=== PATIENT | female | born 1960 | race Caucasian/White ===

== ENCOUNTER 2021-11-12 15:01 | Inpatient (IN) ==
[2021-11-12] MEDS ORDERED: SODIUM CHLORIDE 0.9% 1,000 ML IV STA (15:35)
[2021-11-12 16:10] LABS: Basophils # 0.1 10*3/uL (0.0-0.2); Basophils % 0.5 % (0.0-0.8); Eosinophils # 0.1 10*3/uL (0.0-0.87); Eosinophils % 0.9 % (0.00-10.9); Hematocrit 37.4 VOL% (35.7-47.0); Hemoglobin 11.7 GM/DL (12.0-16.0); Immature Granulocytes % 0.8 %; Immature Granulocytes Absolute 0.11 #; Lymphocytes # 1.7 10*3/uL (1.4-4.0); Lymphocytes % 11.8 % (21.3-54.2); Mean Corpuscular HGB Conc 31.3 GM/DL (32-36); Mean Corpuscular Volume 86.6 FL (87-102); Mean Platelet Volume 9.9 FL (9.6-12.0); Monocytes % 4.9 % (1.7-12.7); Neutrophils % 81.1 % (38.7-73.9); Platelet Count 287 T/CUMM (130-400); Red Blood Count 4.32 MC/CUMM (3.8-5.5); Red Cell Distribution Width 18.6 % (9.3-17.3); White Blood Count 14.1 T/CUMM (4-12)
[2021-11-12 16:25] LABS: Alanine Aminotransferase 12 U/L (13-56); Albumin 2.2 G/DL (3.4-5.0); Alkaline Phosphatase 159 U/L (45-117); Aspartate Amino Transferase 16 U/L (0-37); Bilirubin,Total < 0.39 MG/DL (0.20-1.00); Blood Urea Nitrogen 14 MG/DL (7-18); Calcium 8.5 MG/DL (8.5-10.1); Carbon Dioxide 25 MMOL/L (21-32); Estimated Glom Filtration Rate 117 ML/MIN; Glucose 308 MG/DL (74-106); Osmolality,Calculated 289.5 MOS/KG (273-304); Potassium 4.4 MMOL/L (3.5-5.1); Sodium 139 MMOL/L (136-145); Total Protein 6.9 G/DL (6.4-8.2)
[2021-11-12] MEDS ORDERED: hydrALAZINE 20 MG/1 ML VIAL IV PRN (17:05)
[2021-11-12] MEDS ORDERED: DEXTROSE 10% 25 GM/250 ML BAG IV PRN (17:05)
[2021-11-12] MEDS ORDERED: ONDANSETRON 4 MG/2 ML VIAL IV PRN (17:05)
[2021-11-12] MEDS ORDERED: GLUCAGON 1 MG VIAL IM PRN (17:05)
[2021-11-12] MEDS ORDERED: VANCOMYCIN INJ 1,000 MG in SODIUM CHLORIDE 0.9% 250 ML IV SCH (17:30)
[2021-11-12 17:52] LABS: Bacteria,Urine Moderate /HPF (Few); Bilirubin,Urine Negative (Negative); Blood, Urine Negative (Negative); Glucose,Urine (UA) >=500 mg/dL (Negative); Ketones,Urine 5 mg/dL (Negative); Mucus,Urine Occasional /LPF (Occasional); Nitrite,Urine Positive (Negative); Protein,Urine 30 MG/DL; RBC,Urine 4 /HPF (0-4); Squamous Epithelial Cell,Urine Occasional /HPF (0-10); Urine Appearance Slightly Hazy (Clear); Urine Color Yellow (Yellow); Urine Specific Gravity 1.032 (1.001-1.035); Urine Urobilinogen < 2.0 EU/DL (<2.0)
[2021-11-12] MEDS: MORPHINE 2 MG/1 ML SYRINGE IV PRN (19:54)
[2021-11-12] MEDS: VANCOMYCIN INJ 1,750 MG in SODIUM CHLORIDE 0.9% 500 ML IV SCH (22:00)
[2021-11-12] MEDS: INSULIN REGULAR 100 UNIT/ML SUBCUT SCH (22:14)
[2021-11-13] MEDS: MORPHINE 2 MG/1 ML SYRINGE IV PRN ×2 (00:23→04:54)
[2021-11-13 05:41] LABS: Basophils # 0.1 10*3/uL (0.0-0.2); Basophils % 0.4 % (0.0-0.8); Eosinophils # 0.2 10*3/uL (0.0-0.87); Eosinophils % 1.3 % (0.00-10.9); Hematocrit 33.6 VOL% (35.7-47.0); Hemoglobin 10.5 GM/DL (12.0-16.0); Immature Granulocytes % 0.7 %; Immature Granulocytes Absolute 0.11 #; Lymphocytes # 2.3 10*3/uL (1.4-4.0); Lymphocytes % 15.1 % (21.3-54.2); Mean Corpuscular HGB Conc 31.3 GM/DL (32-36); Mean Corpuscular Volume 88.2 FL (87-102); Mean Platelet Volume 10.3 FL (9.6-12.0); Monocytes % 6.3 % (1.7-12.7); Neutrophils % 76.2 % (38.7-73.9); Platelet Count 268 T/CUMM (130-400); Red Blood Count 3.81 MC/CUMM (3.8-5.5); Red Cell Distribution Width 18.6 % (9.3-17.3)
[2021-11-13] MEDS ORDERED: ceFAZolin 2,000 MG/50 ML DUPLEX IV ONE (06:00)
[2021-11-13 06:09] LABS: Alanine Aminotransferase < 6 U/L (13-56); Albumin 2.3 G/DL (3.4-5.0); Alkaline Phosphatase 153 U/L (45-117); Aspartate Amino Transferase 8 U/L (0-37); Blood Urea Nitrogen 15 MG/DL (7-18); Calcium 8.9 MG/DL (8.5-10.1); Carbon Dioxide 23 MMOL/L (21-32); Estimated Glom Filtration Rate 123 ML/MIN; Glucose 307 MG/DL (74-106); HDL Cholesterol 36 MG/DL (40-60); Osmolality,Calculated 280.2 MOS/KG (273-304); Potassium 4.5 MMOL/L (3.5-5.1); Risk Ratio 3.36; Sodium 134 MMOL/L (136-145); Total Protein 6.6 G/DL (6.4-8.2); Triglycerides 180 MG/DL (2-150)
[2021-11-13] MEDS: INSULIN REGULAR 100 UNIT/ML SUBCUT SCH ×5 (08:46→22:21)
[2021-11-13] MEDS ORDERED: propofoL 200 MG/20 ML VIAL IV ONE (09:09)
[2021-11-13] MEDS ORDERED: SEVOFLURANE 1 UNIT/15 MINUTE INH ONE ×5 (09:09→10:21)
[2021-11-13] MEDS ORDERED: LIDOCAINE 2% 5 ML VIAL ONE (09:09)
[2021-11-13] MEDS ORDERED: fentaNYL 100 MCG/2 ML VIAL ONE (09:10)
[2021-11-13] MEDS ORDERED: MIDAZOLAM 2 MG/2 ML VIAL ONE (09:10)
[2021-11-13] MEDS ORDERED: ACETAMINOPHEN INJ 1,000 MG/100 ML VIAL IV ONE (10:12)
[2021-11-13] MEDS ORDERED: KETOROLAC 30 MG/1 ML VIAL ONE (10:36)
[2021-11-13] MEDS ORDERED: ONDANSETRON 4 MG/2 ML VIAL ONE (10:36)
[2021-11-13] MEDS ORDERED: MAGNESIUM HYDROXIDE SUSP 30 ML UDCUP PO PRN (11:12)
[2021-11-13] MEDS ORDERED: LIDOCAINE 1% 5 ML VIAL ONE (11:19)
[2021-11-13] MEDS ORDERED: BUPIVACAINE MPF 0.25% 30 ML VIAL ONE ×2 (11:19→11:28)
[2021-11-13] MEDS ORDERED: ONDANSETRON 4 MG/2 ML VIAL IV PRN (11:40)
[2021-11-13] MEDS: HYDROmorphone 2 MG/1 ML VIAL IV PRN ×4 (11:42→12:19)
[2021-11-13] MEDS ORDERED: MAGNESIUM SULF RIDER 2 GM/50 ML PREMIX IV ONE (12:00)
[2021-11-13] MEDS: VANCOMYCIN INJ 1,750 MG in SODIUM CHLORIDE 0.9% 500 ML IV SCH ×2 (14:22→21:03)
[2021-11-13] MEDS: diphenhydrAMINE CAP 25 MG CAPSULE PO PRN (14:32)
[2021-11-13] MEDS: ACETAMINOPHEN 325 MG TABLET PO PRN (18:17)
[2021-11-13] MEDS: DOCUSATE SODIUM 100 MG CAPSULE PO SCH (21:03)
[2021-11-13] MEDS: LACTATED RINGERS 1,000 ML IV SCH (22:22)
[2021-11-14] MEDS: FONDAPARINUX 2.5 MG/0.5 ML SYRINGE SUBCUT SCH (05:19)
[2021-11-14 05:29] LABS: Basophils # 0.1 10*3/uL (0.0-0.2); Basophils % 0.5 % (0.0-0.8); Eosinophils # 0.4 10*3/uL (0.0-0.87); Eosinophils % 3.1 % (0.00-10.9); Hematocrit 30.1 VOL% (35.7-47.0); Hemoglobin 9.3 GM/DL (12.0-16.0); Immature Granulocytes Absolute 0.12 #; Mean Corpuscular HGB Conc 30.9 GM/DL (32-36); Mean Corpuscular Volume 88.3 FL (87-102); Monocytes % 6.1 % (1.7-12.7); Neutrophils % 63.3 % (38.7-73.9); Platelet Count 248 T/CUMM (130-400); Red Blood Count 3.41 MC/CUMM (3.8-5.5); Red Cell Distribution Width 18.6 % (9.3-17.3); White Blood Count 11.5 T/CUMM (4-12)
[2021-11-14 05:53] LABS: Albumin 1.9 G/DL (3.4-5.0); Bilirubin,Total 0.7 MG/DL (0.20-1.00); Calcium 8.1 MG/DL (8.5-10.1); Osmolality,Calculated 283.5 MOS/KG (273-304); Total Protein 5.9 G/DL (6.4-8.2)
[2021-11-14] MEDS: LACTATED RINGERS 1,000 ML IV SCH ×2 (07:41→07:42)
[2021-11-14] MEDS: PANTOPRAZOLE 40 MG TABLET PO SCH (08:53)
[2021-11-14] MEDS: VANCOMYCIN INJ 1,750 MG in SODIUM CHLORIDE 0.9% 500 ML IV SCH ×2 (08:53→21:24)
[2021-11-14] MEDS: DOCUSATE SODIUM 100 MG CAPSULE PO SCH ×2 (08:53→21:23)
[2021-11-14] MEDS: INSULIN REGULAR 100 UNIT/ML SUBCUT SCH ×4 (09:17→21:23)
[2021-11-14] MEDS: MORPHINE 2 MG/1 ML SYRINGE IV PRN (09:20)
[2021-11-14] MEDS ORDERED: TUBERCULIN SKIN TEST 0.1 ML SYRINGE INTRADERM ONE (09:30)
[2021-11-14] MEDS: SODIUM HYPOCHLORITE 0.25% IRRIG 473 ML BOTTLE TOP SCH (10:43)
[2021-11-14] MEDS: diphenhydrAMINE CAP 25 MG CAPSULE PO PRN ×3 (11:23→23:33)
[2021-11-14] MEDS: POLYETHYLENE GLYCOL POWDER 17 GM PACK PO SCH (13:11)
[2021-11-14] MEDS: BISACODYL 5 MG TABLET PO SCH (13:11)
[2021-11-15] MEDS: SODIUM CHLORIDE 0.9% 1,000 ML IV SCH ×2 (05:05→14:27)
[2021-11-15] MEDS: FONDAPARINUX 2.5 MG/0.5 ML SYRINGE SUBCUT SCH (05:30)
[2021-11-15] MEDS: diphenhydrAMINE CAP 25 MG CAPSULE PO PRN ×2 (05:40→21:01)
[2021-11-15 05:55] LABS: Basophils # 0.1 10*3/uL (0.0-0.2); Basophils % 0.9 % (0.0-0.8); Eosinophils # 0.5 10*3/uL (0.0-0.87); Eosinophils % 4.3 % (0.00-10.9); Hematocrit 32.7 VOL% (35.7-47.0); Hemoglobin 9.8 GM/DL (12.0-16.0); Immature Granulocytes % 1.9 %; Immature Granulocytes Absolute 0.22 #; Lymphocytes # 1.9 10*3/uL (1.4-4.0); Lymphocytes % 16.1 % (21.3-54.2); Mean Corpuscular Volume 89.1 FL (87-102); Mean Platelet Volume 9.9 FL (9.6-12.0); Monocytes % 6.9 % (1.7-12.7); Neutrophils % 69.9 % (38.7-73.9); Platelet Count 300 T/CUMM (130-400); Red Blood Count 3.67 MC/CUMM (3.8-5.5); White Blood Count 11.7 T/CUMM (4-12)
[2021-11-15 06:11] LABS: Albumin 2.1 G/DL (3.4-5.0); Bilirubin,Total 0.5 MG/DL (0.20-1.00); Calcium 8.2 MG/DL (8.5-10.1); Osmolality,Calculated 282.7 MOS/KG (273-304); Potassium 4.3 MMOL/L (3.5-5.1); Total Protein 6.4 G/DL (6.4-8.2)
[2021-11-15] MEDS: INSULIN REGULAR 100 UNIT/ML SUBCUT SCH ×4 (09:04→21:03)
[2021-11-15] MEDS: PANTOPRAZOLE 40 MG TABLET PO SCH (09:04)
[2021-11-15] MEDS: SODIUM HYPOCHLORITE 0.25% IRRIG 473 ML BOTTLE TOP SCH (09:05)
[2021-11-15] MEDS: INSULIN GLARGINE 100 UNIT/ML SUBCUT SCH ×2 (09:05→11:08)
[2021-11-15] MEDS: POLYETHYLENE GLYCOL POWDER 17 GM PACK PO SCH (09:06)
[2021-11-15] MEDS: BISACODYL 5 MG TABLET PO SCH (09:06)
[2021-11-15] MEDS: DOCUSATE SODIUM 100 MG CAPSULE PO SCH ×2 (09:06→21:01)
[2021-11-15] MEDS: hydrOXYzine HCL 10 MG TABLET PO PRN ×2 (09:18→15:01)
[2021-11-15] MEDS: MEROPENEM 500 MG in SODIUM CHLORIDE 0.9% 100 ML IV SCH ×2 (14:04→20:59)
[2021-11-15] MEDS: VANCOMYCIN INJ 1,750 MG in SODIUM CHLORIDE 0.9% 500 ML IV SCH (15:00)
[2021-11-16] MEDS: MEROPENEM 500 MG in SODIUM CHLORIDE 0.9% 100 ML IV SCH ×5 (01:08→21:00)
[2021-11-16] MEDS: diphenhydrAMINE CAP 25 MG CAPSULE PO PRN ×2 (06:15→21:00)
[2021-11-16] MEDS: FONDAPARINUX 2.5 MG/0.5 ML SYRINGE SUBCUT SCH (06:15)
[2021-11-16 07:22] LABS: Basophils # 0.1 10*3/uL (0.0-0.2); Basophils % 0.9 % (0.0-0.8); Eosinophils # 0.6 10*3/uL (0.0-0.87); Eosinophils % 4.9 % (0.00-10.9); Hematocrit 33.8 VOL% (35.7-47.0); Hemoglobin 9.9 GM/DL (12.0-16.0); Immature Granulocytes % 1.8 %; Lymphocytes # 2.1 10*3/uL (1.4-4.0); Lymphocytes % 18.5 % (21.3-54.2); Mean Corpuscular HGB Conc 29.3 GM/DL (32-36); Mean Corpuscular Volume 92.3 FL (87-102); Mean Platelet Volume 9.4 FL (9.6-12.0); Monocytes % 6.7 % (1.7-12.7); Neutrophils % 67.2 % (38.7-73.9); Platelet Count 312 T/CUMM (130-400); Red Blood Count 3.66 MC/CUMM (3.8-5.5); Red Cell Distribution Width 18.3 % (9.3-17.3); White Blood Count 11.1 T/CUMM (4-12)
[2021-11-16 07:30] LABS: Calcium 8.4 MG/DL (8.5-10.1); Osmolality,Calculated 282.8 MOS/KG (273-304); Potassium 4.2 MMOL/L (3.5-5.1); Total Protein 6.3 G/DL (6.4-8.2)
[2021-11-16] MEDS: DOCUSATE SODIUM 100 MG CAPSULE PO SCH ×2 (09:42→21:00)
[2021-11-16] MEDS: PANTOPRAZOLE 40 MG TABLET PO SCH (09:42)
[2021-11-16] MEDS: INSULIN GLARGINE 100 UNIT/ML SUBCUT SCH (09:42)
[2021-11-16] MEDS: INSULIN REGULAR 100 UNIT/ML SUBCUT SCH ×4 (09:42→21:01)
[2021-11-16] MEDS: POLYETHYLENE GLYCOL POWDER 17 GM PACK PO SCH (09:53)
[2021-11-16] MEDS: BISACODYL 5 MG TABLET PO SCH (09:53)
[2021-11-16] MEDS: VANCOMYCIN INJ 1,750 MG in SODIUM CHLORIDE 0.9% 500 ML IV SCH (09:54)
[2021-11-16 10:07] LABS: Anisocytosis 1+; Platelet Estimate Normal
[2021-11-16] MEDS ORDERED: INSULIN GLARGINE 100 UNIT/ML SUBCUT ONE (10:32)
[2021-11-16] MEDS: SULFAMETHOX/TRIMETHOPRIM 800-160 MG TABLET PO SCH ×2 (12:20→21:00)
[2021-11-16] MEDS: FLUCONAZOLE 150 MG TABLET PO SCH (12:20)
[2021-11-16] MEDS: SODIUM HYPOCHLORITE 0.25% IRRIG 473 ML BOTTLE TOP SCH (15:45)
[2021-11-17] MEDS: MEROPENEM 500 MG in SODIUM CHLORIDE 0.9% 100 ML IV SCH ×4 (03:39→21:39)
[2021-11-17] MEDS: diphenhydrAMINE CAP 25 MG CAPSULE PO PRN ×3 (05:00→21:38)
[2021-11-17] MEDS: FONDAPARINUX 2.5 MG/0.5 ML SYRINGE SUBCUT SCH (05:00)
[2021-11-17 06:46] LABS: Basophils # 0.1 10*3/uL (0.0-0.2); Basophils % 0.6 % (0.0-0.8); Eosinophils # 0.5 10*3/uL (0.0-0.87); Eosinophils % 4.7 % (0.00-10.9); Hematocrit 30.3 VOL% (35.7-47.0); Hemoglobin 9.2 GM/DL (12.0-16.0); Lymphocytes # 2.6 10*3/uL (1.4-4.0); Mean Corpuscular HGB Conc 30.4 GM/DL (32-36); Mean Corpuscular Volume 88.3 FL (87-102); Mean Platelet Volume 9.9 FL (9.6-12.0); Monocytes % 5.8 % (1.7-12.7); Neutrophils % 60.9 % (38.7-73.9); Platelet Count 350 T/CUMM (130-400); Red Blood Count 3.43 MC/CUMM (3.8-5.5); Red Cell Distribution Width 18.5 % (9.3-17.3); White Blood Count 9.9 T/CUMM (4-12)
[2021-11-17 07:09] LABS: Albumin 1.9 G/DL (3.4-5.0); Bilirubin,Total 0.4 MG/DL (0.20-1.00); Calcium 8.7 MG/DL (8.5-10.1); Potassium 3.9 MMOL/L (3.5-5.1); Total Protein 6.2 G/DL (6.4-8.2)
[2021-11-17] MEDS: PANTOPRAZOLE 40 MG TABLET PO SCH (08:36)
[2021-11-17] MEDS: BISACODYL 5 MG TABLET PO SCH (08:36)
[2021-11-17] MEDS: INSULIN REGULAR 100 UNIT/ML SUBCUT SCH ×4 (08:37→21:38)
[2021-11-17] MEDS: SULFAMETHOX/TRIMETHOPRIM 800-160 MG TABLET PO SCH ×2 (08:37→21:38)
[2021-11-17] MEDS: DOCUSATE SODIUM 100 MG CAPSULE PO SCH ×2 (08:37→21:38)
[2021-11-17] MEDS: INSULIN GLARGINE 100 UNIT/ML SUBCUT SCH (08:38)
[2021-11-17] MEDS: POLYETHYLENE GLYCOL POWDER 17 GM PACK PO SCH ×2 (08:57→21:39)
[2021-11-17] MEDS ORDERED: traMADol 50 MG TABLET PO PRN (13:01)
[2021-11-17] MEDS: CHOLECALCIFEROL 1,000 UNIT TABLET PO SCH (14:37)
[2021-11-17] MEDS: SODIUM HYPOCHLORITE 0.25% IRRIG 473 ML BOTTLE TOP SCH (16:22)
[2021-11-17] MEDS: NYSTATIN POWDER 15 GM BOTTLE TOP SCH ×2 (17:00→21:39)
[2021-11-17] MEDS: MORPHINE 2 MG/1 ML SYRINGE IV PRN (21:40)
[2021-11-18] MEDS: MEROPENEM 500 MG in SODIUM CHLORIDE 0.9% 100 ML IV SCH ×4 (02:08→21:21)
[2021-11-18] MEDS: FONDAPARINUX 2.5 MG/0.5 ML SYRINGE SUBCUT SCH (06:27)
[2021-11-18] MEDS ORDERED: oxyCODONE/ACETAMINOPHEN 5-325 MG TABLET PO PRN (06:55)
[2021-11-18] MEDS: LINACLOTIDE 145 MCG CAPSULE PO SCH (07:55)
[2021-11-18] MEDS: INSULIN REGULAR 100 UNIT/ML SUBCUT SCH ×4 (08:30→21:22)
[2021-11-18] MEDS: INSULIN GLARGINE 100 UNIT/ML SUBCUT SCH (08:30)
[2021-11-18] MEDS: POLYETHYLENE GLYCOL POWDER 17 GM PACK PO SCH ×2 (08:30→22:40)
[2021-11-18] MEDS: BISACODYL 5 MG TABLET PO SCH (08:31)
[2021-11-18] MEDS: PANTOPRAZOLE 40 MG TABLET PO SCH (08:31)
[2021-11-18] MEDS: DOCUSATE SODIUM 100 MG CAPSULE PO SCH ×2 (08:31→21:22)
[2021-11-18] MEDS: SULFAMETHOX/TRIMETHOPRIM 800-160 MG TABLET PO SCH ×2 (08:31→21:22)
[2021-11-18] MEDS: NYSTATIN POWDER 15 GM BOTTLE TOP SCH ×3 (09:15→21:04)
[2021-11-18] MEDS: SODIUM HYPOCHLORITE 0.25% IRRIG 473 ML BOTTLE TOP SCH (09:28)
[2021-11-18] MEDS: MULTIVITAMIN (BEROCCA) TABLET PO SCH (09:29)
[2021-11-18] MEDS: CHOLECALCIFEROL 1,000 UNIT TABLET PO SCH (09:29)
[2021-11-18] MEDS ORDERED: ERGOCALCIFEROL 50,000 UNIT CAPSULE PO ONE (10:30)
[2021-11-18] MEDS ORDERED: ALVIMOPAN 12 MG CAPSULE PO SCH (13:30)
[2021-11-18] MEDS ORDERED: BISACODYL 10 MG SUPP RECTAL ONE (13:45)
[2021-11-18] MEDS: oxyCODONE/ACETAMINOPHEN 5-325 MG TABLET PO PRN ×2 (13:58→23:04)
[2021-11-18] MEDS ORDERED: LACTULOSE 20 GM/30 ML UDCUP PO SCH (14:00)
[2021-11-18] MEDS ORDERED: LUBIPROSTONE 24 MCG CAPSULE PO SCH (14:00)
[2021-11-18] MEDS: diphenhydrAMINE CAP 25 MG CAPSULE PO PRN (21:22)
[2021-11-19] MEDS: MEROPENEM 500 MG in SODIUM CHLORIDE 0.9% 100 ML IV SCH ×4 (02:31→21:47)
[2021-11-19 06:13] LABS: Calcium 8.8 MG/DL (8.5-10.1); Osmolality,Calculated 271.4 MOS/KG (273-304); Potassium 4.2 MMOL/L (3.5-5.1)
[2021-11-19] MEDS: FONDAPARINUX 2.5 MG/0.5 ML SYRINGE SUBCUT SCH (06:37)
[2021-11-19 07:04] LABS: Basophils # 0.1 10*3/uL (0.0-0.2); Basophils % 0.7 % (0.0-0.8); Eosinophils # 0.5 10*3/uL (0.0-0.87); Eosinophils % 5.5 % (0.00-10.9); Hemoglobin 10.3 GM/DL (12.0-16.0); Immature Granulocytes Absolute 0.17 #; Lymphocytes # 2.3 10*3/uL (1.4-4.0); Lymphocytes % 26.7 % (21.3-54.2); Mean Corpuscular HGB Conc 31.2 GM/DL (32-36); Mean Corpuscular Volume 87.3 FL (87-102); Mean Platelet Volume 9.2 FL (9.6-12.0); Monocytes % 6.5 % (1.7-12.7); Neutrophils % 58.6 % (38.7-73.9); Platelet Count 394 T/CUMM (130-400); Red Blood Count 3.78 MC/CUMM (3.8-5.5); Red Cell Distribution Width 18.9 % (9.3-17.3); White Blood Count 8.5 T/CUMM (4-12)
[2021-11-19] MEDS: INSULIN REGULAR 100 UNIT/ML SUBCUT SCH ×4 (09:12→21:59)
[2021-11-19] MEDS: INSULIN GLARGINE 100 UNIT/ML SUBCUT SCH (09:12)
[2021-11-19] MEDS: MULTIVITAMIN (BEROCCA) TABLET PO SCH (09:13)
[2021-11-19] MEDS: LINACLOTIDE 145 MCG CAPSULE PO SCH (09:13)
[2021-11-19] MEDS: diphenhydrAMINE CAP 25 MG CAPSULE PO PRN ×2 (09:13→19:36)
[2021-11-19] MEDS: PANTOPRAZOLE 40 MG TABLET PO SCH (09:13)
[2021-11-19] MEDS: SULFAMETHOX/TRIMETHOPRIM 800-160 MG TABLET PO SCH ×2 (09:13→21:46)
[2021-11-19] MEDS: POLYETHYLENE GLYCOL POWDER 17 GM PACK PO SCH ×2 (09:13→22:00)
[2021-11-19] MEDS: DOCUSATE SODIUM 100 MG CAPSULE PO SCH ×2 (09:14→21:46)
[2021-11-19] MEDS: oxyCODONE/ACETAMINOPHEN 5-325 MG TABLET PO PRN ×3 (09:14→21:46)
[2021-11-19] MEDS: SODIUM HYPOCHLORITE 0.25% IRRIG 473 ML BOTTLE TOP SCH (09:15)
[2021-11-19] MEDS: NYSTATIN POWDER 15 GM BOTTLE TOP SCH ×3 (09:15→21:59)
[2021-11-19] MEDS: CHOLECALCIFEROL 1,000 UNIT TABLET PO SCH (11:37)
[2021-11-19] MEDS: FLUCONAZOLE 150 MG TABLET PO SCH (11:39)
[2021-11-20] MEDS: diphenhydrAMINE CAP 25 MG CAPSULE PO PRN ×4 (02:13→21:12)
[2021-11-20] MEDS: MEROPENEM 500 MG in SODIUM CHLORIDE 0.9% 100 ML IV SCH ×4 (02:15→21:11)
[2021-11-20] MEDS: FONDAPARINUX 2.5 MG/0.5 ML SYRINGE SUBCUT SCH (06:22)
[2021-11-20 06:33] LABS: Basophils # 0.1 10*3/uL (0.0-0.2); Basophils % 0.8 % (0.0-0.8); Eosinophils # 0.4 10*3/uL (0.0-0.87); Eosinophils % 4.2 % (0.00-10.9); Hemoglobin 10.3 GM/DL (12.0-16.0); Immature Granulocytes Absolute 0.19 #; Lymphocytes # 2.5 10*3/uL (1.4-4.0); Lymphocytes % 26.8 % (21.3-54.2); Mean Corpuscular HGB Conc 30.3 GM/DL (32-36); Mean Corpuscular Volume 88.1 FL (87-102); Mean Platelet Volume 9.4 FL (9.6-12.0); Neutrophils % 60.2 % (38.7-73.9); Platelet Count 466 T/CUMM (130-400); Red Blood Count 3.86 MC/CUMM (3.8-5.5); White Blood Count 9.5 T/CUMM (4-12)
[2021-11-20 07:15] LABS: Calcium 8.6 MG/DL (8.5-10.1); Osmolality,Calculated 285.7 MOS/KG (273-304); Potassium 4.2 MMOL/L (3.5-5.1)
[2021-11-20] MEDS: MULTIVITAMIN (BEROCCA) TABLET PO SCH (09:48)
[2021-11-20] MEDS: SULFAMETHOX/TRIMETHOPRIM 800-160 MG TABLET PO SCH ×2 (09:49→21:12)
[2021-11-20] MEDS: INSULIN GLARGINE 100 UNIT/ML SUBCUT SCH (09:49)
[2021-11-20] MEDS: PANTOPRAZOLE 40 MG TABLET PO SCH (09:49)
[2021-11-20] MEDS: INSULIN REGULAR 100 UNIT/ML SUBCUT SCH ×4 (09:49→21:10)
[2021-11-20] MEDS: CHOLECALCIFEROL 1,000 UNIT TABLET PO SCH (09:49)
[2021-11-20] MEDS: oxyCODONE/ACETAMINOPHEN 5-325 MG TABLET PO PRN ×2 (09:50→16:10)
[2021-11-20] MEDS: SODIUM HYPOCHLORITE 0.25% IRRIG 473 ML BOTTLE TOP SCH (09:52)
[2021-11-20] MEDS: NYSTATIN POWDER 15 GM BOTTLE TOP SCH (09:52)
[2021-11-20] MEDS: LINACLOTIDE 145 MCG CAPSULE PO SCH (11:10)
[2021-11-20] MEDS: POLYETHYLENE GLYCOL POWDER 17 GM PACK PO SCH ×2 (11:10→21:12)
[2021-11-20] MEDS: DOCUSATE SODIUM 100 MG CAPSULE PO SCH ×2 (11:10→21:12)
[2021-11-20] MEDS: metFORMIN 500 MG TABLET PO SCH (16:09)
[2021-11-20] MEDS: CLOTRIMAZOLE 1% CREAM 15 GM TUBE TOP SCH ×2 (17:35→21:12)
[2021-11-21] MEDS: oxyCODONE/ACETAMINOPHEN 5-325 MG TABLET PO PRN ×3 (02:27→18:25)
[2021-11-21] MEDS: MEROPENEM 500 MG in SODIUM CHLORIDE 0.9% 100 ML IV SCH ×2 (02:28→08:51)
[2021-11-21 05:50] LABS: Basophils # 0.1 10*3/uL (0.0-0.2); Basophils % 0.6 % (0.0-0.8); Eosinophils # 0.5 10*3/uL (0.0-0.87); Eosinophils % 5.1 % (0.00-10.9); Hemoglobin 10.4 GM/DL (12.0-16.0); Immature Granulocytes % 2.6 %; Immature Granulocytes Absolute 0.26 #; Lymphocytes % 30.2 % (21.3-54.2); Mean Corpuscular HGB Conc 31.5 GM/DL (32-36); Mean Corpuscular Volume 88.7 FL (87-102); Mean Platelet Volume 9.5 FL (9.6-12.0); Monocytes % 6.1 % (1.7-12.7); Neutrophils % 55.4 % (38.7-73.9); Platelet Count 503 T/CUMM (130-400); Red Blood Count 3.72 MC/CUMM (3.8-5.5); Red Cell Distribution Width 19.2 % (9.3-17.3)
[2021-11-21 05:53] LABS: Calcium 8.8 MG/DL (8.5-10.1); Osmolality,Calculated 282.7 MOS/KG (273-304)
[2021-11-21] MEDS: FONDAPARINUX 2.5 MG/0.5 ML SYRINGE SUBCUT SCH (05:53)
[2021-11-21] MEDS: CHOLECALCIFEROL 5,000 UNIT TABLET PO SCH (08:50)
[2021-11-21] MEDS: SULFAMETHOX/TRIMETHOPRIM 800-160 MG TABLET PO SCH ×2 (08:50→21:55)
[2021-11-21] MEDS: metFORMIN 500 MG TABLET PO SCH ×2 (08:51→17:29)
[2021-11-21] MEDS: PANTOPRAZOLE 40 MG TABLET PO SCH (08:51)
[2021-11-21] MEDS: DOCUSATE SODIUM 100 MG CAPSULE PO SCH ×2 (08:51→21:56)
[2021-11-21] MEDS: DAPAGLIFLOZIN 10 MG TABLET PO SCH (08:51)
[2021-11-21] MEDS: MULTIVITAMIN (BEROCCA) TABLET PO SCH (08:51)
[2021-11-21] MEDS: FLUCONAZOLE 100 MG TABLET PO SCH (08:51)
[2021-11-21] MEDS: POLYETHYLENE GLYCOL POWDER 17 GM PACK PO SCH ×3 (08:54→21:56)
[2021-11-21] MEDS ORDERED: INSULIN GLARGINE 100 UNIT/ML SUBCUT SCH (09:00)
[2021-11-21] MEDS: INSULIN REGULAR 100 UNIT/ML SUBCUT SCH ×4 (09:01→21:55)
[2021-11-21] MEDS: diphenhydrAMINE CAP 25 MG CAPSULE PO PRN ×2 (09:01→18:25)
[2021-11-21] MEDS: LINACLOTIDE 145 MCG CAPSULE PO SCH (09:01)
[2021-11-21] MEDS: CLOTRIMAZOLE 1% CREAM 15 GM TUBE TOP SCH ×2 (09:02→21:56)
[2021-11-21] MEDS: SODIUM HYPOCHLORITE 0.25% IRRIG 473 ML BOTTLE TOP SCH (09:02)
[2021-11-21] MEDS: ACETAMINOPHEN 325 MG TABLET PO PRN (21:55)
[2021-11-22 04:09] LABS: Basophils # 0.1 10*3/uL (0.0-0.2); Basophils % 0.8 % (0.0-0.8); Eosinophils # 0.4 10*3/uL (0.0-0.87); Eosinophils % 4.6 % (0.00-10.9); Hematocrit 33.4 VOL% (35.7-47.0); Hemoglobin 10.4 GM/DL (12.0-16.0); Immature Granulocytes % 1.8 %; Immature Granulocytes Absolute 0.15 #; Lymphocytes # 3.2 10*3/uL (1.4-4.0); Lymphocytes % 37.8 % (21.3-54.2); Mean Corpuscular HGB Conc 31.1 GM/DL (32-36); Mean Corpuscular Volume 88.1 FL (87-102); Mean Platelet Volume 9.1 FL (9.6-12.0); Monocytes % 7.1 % (1.7-12.7); Neutrophils % 47.9 % (38.7-73.9); Platelet Count 506 T/CUMM (130-400); Red Blood Count 3.79 MC/CUMM (3.8-5.5); Red Cell Distribution Width 19.1 % (9.3-17.3); White Blood Count 8.5 T/CUMM (4-12)
[2021-11-22 04:27] LABS: Calcium 9.1 MG/DL (8.5-10.1); Osmolality,Calculated 278.8 MOS/KG (273-304); Potassium 3.9 MMOL/L (3.5-5.1)
[2021-11-22 05:06] LABS: Ferritin 55.9 ng/mL (8-252)
[2021-11-22] MEDS: FONDAPARINUX 2.5 MG/0.5 ML SYRINGE SUBCUT SCH (05:25)
[2021-11-22] MEDS: diphenhydrAMINE CAP 25 MG CAPSULE PO PRN ×3 (05:25→22:12)
[2021-11-22] MEDS: oxyCODONE/ACETAMINOPHEN 5-325 MG TABLET PO PRN ×4 (05:26→22:12)
[2021-11-22] MEDS: INSULIN REGULAR 100 UNIT/ML SUBCUT SCH ×4 (09:00→21:50)
[2021-11-22] MEDS: SODIUM HYPOCHLORITE 0.25% IRRIG 473 ML BOTTLE TOP SCH (09:00)
[2021-11-22] MEDS: DOCUSATE SODIUM 100 MG CAPSULE PO SCH ×2 (09:00→21:50)
[2021-11-22] MEDS: INSULIN GLARGINE 100 UNIT/ML SUBCUT SCH ×2 (09:00→09:39)
[2021-11-22] MEDS: CLOTRIMAZOLE 1% CREAM 15 GM TUBE TOP SCH ×2 (09:00→21:50)
[2021-11-22] MEDS: DAPAGLIFLOZIN 10 MG TABLET PO SCH (09:00)
[2021-11-22] MEDS: FLUCONAZOLE 100 MG TABLET PO SCH (09:37)
[2021-11-22] MEDS: CHOLECALCIFEROL 5,000 UNIT TABLET PO SCH (09:37)
[2021-11-22] MEDS: metFORMIN 500 MG TABLET PO SCH ×2 (09:37→17:25)
[2021-11-22] MEDS: PANTOPRAZOLE 40 MG TABLET PO SCH (09:37)
[2021-11-22] MEDS: SULFAMETHOX/TRIMETHOPRIM 800-160 MG TABLET PO SCH ×2 (09:37→21:50)
[2021-11-22] MEDS: LINACLOTIDE 145 MCG CAPSULE PO SCH (09:38)
[2021-11-22] MEDS: MULTIVITAMIN (BEROCCA) TABLET PO SCH (09:38)
[2021-11-22] MEDS: POLYETHYLENE GLYCOL POWDER 17 GM PACK PO SCH ×3 (11:45→21:50)
[2021-11-23] MEDS: FONDAPARINUX 2.5 MG/0.5 ML SYRINGE SUBCUT SCH (05:31)
[2021-11-23 05:38] LABS: Basophils # 0.1 10*3/uL (0.0-0.2); Basophils % 0.8 % (0.0-0.8); Eosinophils # 0.4 10*3/uL (0.0-0.87); Eosinophils % 4.2 % (0.00-10.9); Hematocrit 36.7 VOL% (35.7-47.0); Hemoglobin 10.9 GM/DL (12.0-16.0); Immature Granulocytes % 1.2 %; Immature Granulocytes Absolute 0.11 #; Lymphocytes % 32.7 % (21.3-54.2); Mean Corpuscular HGB Conc 29.7 GM/DL (32-36); Mean Corpuscular Volume 88.9 FL (87-102); Mean Platelet Volume 9.1 FL (9.6-12.0); Monocytes % 6.5 % (1.7-12.7); Neutrophils % 54.6 % (38.7-73.9); Platelet Count 560 T/CUMM (130-400); Red Blood Count 4.13 MC/CUMM (3.8-5.5); Red Cell Distribution Width 18.6 % (9.3-17.3); White Blood Count 9.2 T/CUMM (4-12)
[2021-11-23 06:05] LABS: Calcium 8.9 MG/DL (8.5-10.1); Osmolality,Calculated 278.1 MOS/KG (273-304); Potassium 4.3 MMOL/L (3.5-5.1)
[2021-11-23 06:06] LABS: Ferritin 58.7 ng/mL (8-252)
[2021-11-23] MEDS: LINACLOTIDE 145 MCG CAPSULE PO SCH (08:00)
[2021-11-23] MEDS: INSULIN GLARGINE 100 UNIT/ML SUBCUT SCH (08:40)
[2021-11-23] MEDS: INSULIN REGULAR 100 UNIT/ML SUBCUT SCH ×4 (08:40→20:36)
[2021-11-23] MEDS: MULTIVITAMIN (BEROCCA) TABLET PO SCH (08:41)
[2021-11-23] MEDS: DAPAGLIFLOZIN 10 MG TABLET PO SCH (08:41)
[2021-11-23] MEDS: DOCUSATE SODIUM 100 MG CAPSULE PO SCH ×2 (08:41→21:23)
[2021-11-23] MEDS: CHOLECALCIFEROL 5,000 UNIT TABLET PO SCH (08:41)
[2021-11-23] MEDS: sitaGLIPtin 100 MG TABLET PO SCH (08:41)
[2021-11-23] MEDS: metFORMIN 500 MG TABLET PO SCH ×2 (08:42→17:00)
[2021-11-23] MEDS: PANTOPRAZOLE 40 MG TABLET PO SCH (08:42)
[2021-11-23] MEDS: SULFAMETHOX/TRIMETHOPRIM 800-160 MG TABLET PO SCH ×2 (08:42→21:23)
[2021-11-23] MEDS: FLUCONAZOLE 100 MG TABLET PO SCH (08:42)
[2021-11-23] MEDS: SODIUM HYPOCHLORITE 0.25% IRRIG 473 ML BOTTLE TOP SCH (08:44)
[2021-11-23] MEDS: CLOTRIMAZOLE 1% CREAM 15 GM TUBE TOP SCH ×2 (08:48→21:24)
[2021-11-23] MEDS: POLYETHYLENE GLYCOL POWDER 17 GM PACK PO SCH ×3 (08:49→21:24)
[2021-11-23] MEDS: oxyCODONE/ACETAMINOPHEN 5-325 MG TABLET PO PRN ×2 (12:29→21:24)
[2021-11-23] MEDS: diphenhydrAMINE CAP 25 MG CAPSULE PO PRN ×2 (12:29→21:23)
[2021-11-24] MEDS: oxyCODONE/ACETAMINOPHEN 5-325 MG TABLET PO PRN ×2 (04:14→11:46)
[2021-11-24] MEDS: diphenhydrAMINE CAP 25 MG CAPSULE PO PRN ×2 (04:14→11:46)
[2021-11-24] MEDS: FONDAPARINUX 2.5 MG/0.5 ML SYRINGE SUBCUT SCH (05:39)
[2021-11-24 06:16] LABS: Calcium 9.5 MG/DL (8.5-10.1); Potassium 4.1 MMOL/L (3.5-5.1)
[2021-11-24 06:22] LABS: Ferritin 57.5 ng/mL (8-252)
[2021-11-24] MEDS: metFORMIN 500 MG TABLET PO SCH (08:10)
[2021-11-24] MEDS: CHOLECALCIFEROL 5,000 UNIT TABLET PO SCH (08:10)
[2021-11-24] MEDS: INSULIN REGULAR 100 UNIT/ML SUBCUT SCH ×3 (08:10→16:32)
[2021-11-24] MEDS: MULTIVITAMIN (BEROCCA) TABLET PO SCH (08:11)
[2021-11-24] MEDS: LINACLOTIDE 145 MCG CAPSULE PO SCH (08:11)
[2021-11-24] MEDS: POLYETHYLENE GLYCOL POWDER 17 GM PACK PO SCH ×3 (08:11→15:29)
[2021-11-24] MEDS: PANTOPRAZOLE 40 MG TABLET PO SCH (08:11)
[2021-11-24] MEDS: DAPAGLIFLOZIN 10 MG TABLET PO SCH (08:11)
[2021-11-24] MEDS: FLUCONAZOLE 100 MG TABLET PO SCH (08:11)
[2021-11-24] MEDS: DOCUSATE SODIUM 100 MG CAPSULE PO SCH (08:11)
[2021-11-24] MEDS: CLOTRIMAZOLE 1% CREAM 15 GM TUBE TOP SCH (08:23)
[2021-11-24] MEDS: sitaGLIPtin 100 MG TABLET PO SCH (08:23)
[2021-11-24] MEDS: SODIUM HYPOCHLORITE 0.25% IRRIG 473 ML BOTTLE TOP SCH (08:24)
[2021-11-24] MEDS ORDERED: INSULIN GLARGINE 100 UNIT/ML SUBCUT SCH (09:00)
[2021-11-24 09:40] LABS: Basophils # 0.1 # (0.0-0.1); Basophils % 0.5 % (0.2-1.0); Eosinophils # 0.4 # (0.0-0.70); Eosinophils % 3.7 % (0.0-10.0); Hematocrit 36.2 VOL% (37.0-47.0); Hemoglobin 11.5 GM/DL (12.0-16.0); Lymphocytes # 2.6 # (1.3-2.9); Lymphocytes % 27.4 % (20.5-45.5); Mean Corpuscular HGB Conc 31.8 GM/DL (32-36); Mean Corpuscular Volume 87.9 FL (81-99); Mean Platelet Volume 9.2 FL (7.4-10.4); Monocytes % 6.8 % (5.5-11.7); Neutrophils % 60.8 % (43.0-65.0); Platelet Count 561 T/CUMM (130-400); Red Blood Count 4.12 MC/CUMM (4.20-5.40); Red Cell Distribution Width 18.4 % (11.5-15.5); White Blood Count 9.5 T/CUMM (4.8-10.8)
[2021-11-24] MEDS ORDERED: TUBERCULIN SKIN TEST 0.1 ML SYRINGE INTRADERM ONE (11:39)
[2021-11-24 12:12] VITALS: BP 113/73
== END 2021-11-24 16:51 | disposition swing bed (61) | DRG 480 ==
LOC: EDBD → EDUNIT# → N.ED 15:01 → N.3E 17:00 → SUATTDRO 17:00 → N.3E 18:39
PROVIDERS: ADMIT Internal Medicine; ATTEND Hospitalist